=== PATIENT | female | born 1965 | race Caucasian/White ===

== ENCOUNTER → 2017-11-18 | Outpatient (CLI) | payer OTHER ==
[~2017-11-18] MED LIST: LEVO1TAB27 PO; SUMA100T32 PO
== END ==
LOC: LAB 10:18
PROVIDERS: ATTEND Internal Medicine Cardiovascular Disease
DX: R00.2 Palpitations (principal)
CPT/HCPCS: 36415; 84443

== ENCOUNTER → 2018-01-05 | Outpatient (CLI) | payer OTHER ==
[2018-01-05 11:34] LABS: INR 1.19
== END ==
LOC: LAB 10:47
PROVIDERS: ATTEND Internal Medicine
DX: I48.91 Unspecified atrial fibrillation (principal)
CPT/HCPCS: 36415; 81001; 82310; 82374; 82435; 82565; 82947; 84132; 84295; 84520; 85027; 85610

== ENCOUNTER 2018-01-26 18:04 | Emergency (ER) | payer OTHER ==
--- NOTE | 2018-01-26 18:11 | ER Report ---
History and Physical Time Seen By MD: 18:11 Hx. of Stated Complaint: pt started having chest pain, palpitations, sob, lightheadness, dizzy, nauseous last night. pt had an ablation january and is currently wearing a cariac monitor that has altered her for 15 events. HPI/ROS CHIEF COMPLAINT: Rapid heart rate HISTORY OF PRESENT ILLNESS: 52-year-old female patient presents to emergency room with complaint of a rapid heart rate. Patient states that she has a history of A. fib and had a cardiac ablation done on the first. Patient states she was doing well, she states she was taking medication as directed. She states approximately an hour and half prior to arrival in the emergency room patient felt that her heart rate started racing, she stated that she felt very lightheaded and dizzy. Patient denies having any vomiting or diarrhea. Patient did state that she was feeling nauseated. Patient states that she decided come to the emergency room because her heart was continued to race. Patient states that yesterday she felt her heart would flutter little bit her chest, she would have some coughing at that time and then would go away. She states that today he did not go away. REVIEW OF SYSTEMS: Respiratory: No cough, no dyspnea. Cardiovascular: As noted above Gastrointestinal: No vomiting, no abdominal pain. Musculoskeletal: No back pain. Allergies: Coded Allergies: celecoxib (Verified Allergy, Intermediate, RASH, 11/09/07) Uncoded Allergies: ACRONYCIN (Allergy, Intermediate, RASH, 11/09/07) Home Meds Reported Medications Sumatriptan Succinate (Imitrex) 100 Mg Tablet, 100 MG PO 10/18/12 Past Medical/Surgical History Patient has a past medical history of A. fib, arthritis. Patient has a surgical history of cardiac ablation, hysterectomy, left shoulder surgery, back surgery. Reviewed Nurses Notes: Yes Hx Smoking: No Hx Substance Use Disorder: No Hx Alcohol Use: No Constitutional Vital Sign - Last 24 Hours 01/26/18 01/26/18 01/26/18 01/26/18 18:06 18:07 18:30 18:34 Temp 96.8 Pulse 192 87 Resp 20 9 B/P (MAP) 109/50 (69) 109/50 104/78 (87) Pulse Ox 92 95 01/26/18 01/26/18 01/26/18 01/26/18 18:49 19:00 19:04 19:06 Pulse 91 84 103 Resp 11 9 19 B/P (MAP) 103/51 (68) Pulse Ox 97 96 96 Physical Exam General Appearance: The patient is alert, has no immediate need for airway protection and no current signs of toxicity. Respiratory: Chest is non tender, lungs are clear to auscultation. Cardiac: Patient has a rapid heart rate which is regular. Ventricular rate is in the 180s. Gastrointestinal: Abdomen is soft and non tender, no masses, bowel sounds normal. Musculoskeletal: Neck: Neck is supple and non tender. Extremities have full range of motion and are non tender. Skin: No rashes or lesions. DIFFERENTIAL DIAGNOSIS: After history and physical exam differential diagnosis was considered for atrial fibrillation with RVR. Medical Decision Making Data Points Result Diagram: 01/26/182 01/26/182 Laboratory Hematology Test 01/26/18 18:22 Red Blood Count 4.73 M/uL (4.17-5.56) Mean Corpuscular Volume 94.5 fL (80.0-96.0) Mean Corpuscular Hemoglobin 32.0 pg (26.0-33.0) Mean Corpuscular Hemoglobin Concent 33.9 g/dL (32.0-36.0) Red Cell Distribution Width 12.7 % (11.5-14.5) Mean Platelet Volume 8.7 fL (7.2-11.1) Neutrophils (%) (Auto) 53.9 % (39.4-72.5) Lymphocytes (%) (Auto) 36.7 % (17.6-49.6) Monocytes (%) (Auto) 6.8 % (4.1-12.4) Eosinophils (%) (Auto) 1.3 % (0.4-6.7) Basophils (%) (Auto) 1.3 % (0.3-1.4) Nucleated RBC Relative Count (auto) 0.0 /100WBC Neutrophils # (Auto) 5.7 K/uL (2.0-7.4) Lymphocytes # (Auto) 3.9 K/uL (1.3-3.6) Monocytes # (Auto) 0.7 K/uL (0.3-1.0) Eosinophils # (Auto) 0.1 K/uL (0.0-0.5) Basophils # (Auto) 0.1 K/uL (0.0-0.1) Nucleated RBC Absolute Count (auto) 0.01 K/uL Sodium Level 139 mmol/L (137-145) Potassium Level 3.8 mmol/L (3.5-5.0) Chloride Level 103 mmol/L (98-107) Carbon Dioxide Level 23 mmol/L (22-31) Blood Urea Nitrogen 11 mg/dl (7-18) Creatinine 0.80 mg/dl (0.52-1.04) Glomerular Filtration Rate Calc > 60.0 Random Glucose 101 mg/dl (75-110) Calcium Level 9.1 mg/dl (8.4-10.2) Total Bilirubin 0.3 mg/dl (0.2-1.3) Aspartate Amino Transf (AST/SGOT) 18 U/L (0-35) Alanine Aminotransferase (ALT/SGPT) 32 U/L (0-56) Alkaline Phosphatase 65 U/L (0-126) Troponin I < 0.012 ng/ml Total Protein 6.9 g/dl (6.3-8.2) Albumin 4.2 g/dl (3.5-5.0) Chemistry Test 01/26/18 18:22 White Blood Count 10.6 k/uL (4.5-11.0) Red Blood Count 4.73 M/uL (4.17-5.56) Hemoglobin 15.1 g/dL (12.0-16.0) Hematocrit 44.7 % (34.0-47.0) Mean Corpuscular Volume 94.5 fL (80.0-96.0) Mean Corpuscular Hemoglobin 32.0 pg (26.0-33.0) Mean Corpuscular Hemoglobin Concent 33.9 g/dL (32.0-36.0) Red Cell Distribution Width 12.7 % (11.5-14.5) Platelet Count 281 K/uL (150-450) Mean Platelet Volume 8.7 fL (7.2-11.1) Neutrophils (%) (Auto) 53.9 % (39.4-72.5) Lymphocytes (%) (Auto) 36.7 % (17.6-49.6) Monocytes (%) (Auto) 6.8 % (4.1-12.4) Eosinophils (%) (Auto) 1.3 % (0.4-6.7) Basophils (%) (Auto) 1.3 % (0.3-1.4) Nucleated RBC Relative Count (auto) 0.0 /100WBC Neutrophils # (Auto) 5.7 K/uL (2.0-7.4) Lymphocytes # (Auto) 3.9 K/uL (1.3-3.6) Monocytes # (Auto) 0.7 K/uL (0.3-1.0) Eosinophils # (Auto) 0.1 K/uL (0.0-0.5) Basophils # (Auto) 0.1 K/uL (0.0-0.1) Nucleated RBC Absolute Count (auto) 0.01 K/uL Glomerular Filtration Rate Calc > 60.0 Calcium Level 9.1 mg/dl (8.4-10.2) Total Bilirubin 0.3 mg/dl (0.2-1.3) Aspartate Amino Transf (AST/SGOT) 18 U/L (0-35) Alanine Aminotransferase (ALT/SGPT) 32 U/L (0-56) Alkaline Phosphatase 65 U/L (0-126) Troponin I < 0.012 ng/ml Total Protein 6.9 g/dl (6.3-8.2) Albumin 4.2 g/dl (3.5-5.0) EKG/Imaging EKG Interpretation 12 lead EKG done at 1812: Rhythm: Atrial fibrillation with rapid ventricular response, ventricular rate of 182 bpm. [place]: normal QRS: Normal ST segments: normal 12 lead EKG done at 1934: Rhythm: normal sinus rhythm [place]: normal QRS: normal ST segments: Nonspecific ST abnormality Imaging CHEST PA AND LAT Additional pertinent History: Chest pain tightness COMPARISON STUDIES: none FINDINGS: Support lines and catheters: None Lungs and Pleura: Lung mendoza well expanded with no infiltrates or consolidations. No parenchymal mass lesions are seen. There are no effusions Heart and vasculature: Negative. [place] and Mediastinum: Negative. Bones and Chest wall: Mild scoliotic curvature Upper Abdomen: Negative. IMPRESSION: 1. Negative chest for acute cardiopulmonary disease. Report Dictated By: Gualberto Cartwright MD at 01/26/2018 7:18 PM Report E-Signed By: Gualberto Cartwright MD at 01/26/2018 7:20 PM ED Course/Re-evaluation ED Course Patient was admitted in exam room, history and physical were obtained. Differential diagnoses were considered. On examination patient is tachycardic, her heart rate is irregular. An EKG was done which showed patient was in A. fib with RVR with a ventricular rate of 182 bpm. A CBC, CMP, troponin, and chest x- ray were done. Labs were unremarkable, chest x-ray was negative. Patient did receive 20 mg of diltiazem IV. That did slow her down considerably and that after 30 minutes she did convert to a normal sinus rhythm. I discussed the case with Dr. Leon, cardiology at [facility], who felt that there was no need to change her medications, stating that she just is to continue with her flecainide as well as her metoprolol. She is to follow-up with her software development project manager as directed. I discussed this with the patient who verbalized understanding and agreement. We 'll go ahead and discharge patient home at this time. Patient states she does feel significantly improved. Decision to Disposition Date: Jan 26, 2018 Decision to Disposition Time: 19:55 Depart Departure Latest Vital Signs Vital Signs Date Time Temp Pulse Resp B/P (MAP) Pulse Ox O2 Delivery O2 Flow Rate FiO2 01/26/18 19:06 103 19 96 01/26/18 19:00 103/51 (68) 01/26/18 18:07 96.8 Impression: Primary Impression: Atrial fibrillation with RVR Condition: Improved Disposition: HOME OR SELF-CARE Referrals: CHANCE KAPLAN (PCP) Patient Instructions: A-fib (Atrial Fibrillation) (ED) Additional Instructions: Follow up with Cardiology as directed. Continue with your current medications. Return to the ER if condition worsens. You are cleared for all activities. Increase fluid intake. SAMUEL MENDOZA Jan 26, 2018 18:11
[2018-01-26] MEDS ORDERED: NS(*) 0.9% 1000 ML BAG 1,000 ML IV ONE (18:17)
[2018-01-26] MEDS ORDERED: DILTIAZEM 5 MG/ML 5ML IVPUSH IVP ONE (18:20)
--- NOTE | 2018-01-26 18:23 | EKG ---
FACILITY: [facility] PATIENT NAME: DONNY WINTER : [id number] MR: [id number] V: [id number] EXAM DATE: ORDERING PHYSICIAN: SAMUEL MENDOZA TECHNOLOGIST: Test Reason : heart racing Blood Pressure : / mmHG Vent. Rate : 182 BPM Atrial Rate : 143 BPM P-R Int : 000 ms QRS Dur : 088 ms QT Int : 230 ms P-R-T Axes : 000 -24 190 degrees QTc Int : 400 ms Atrial fibrillation with rapid ventricular response RSR' or QR pattern in V1 suggests right ventricular conduction delay Diffuse ST-T findings Abnormal ECG No previous ECGs available Confirmed by LUCIA CONDE ([id number]) on 01/27/2018 6:20:19 AM Referred By: Confirmed By:LUCIA CONDE
[2018-01-26 18:31] LABS: PLATELET COUNT, AUTOMATED 281 K/uL (150-450)
--- NOTE | 2018-01-26 19:23 | RADIOLOGY IMAGING REPORT ---
FACILITY: [facility] PATIENT NAME: Karen Roa : 1965 MR: [id number] V: [id number] EXAM DATE: ORDERING PHYSICIAN: SAMUEL MENDOZA TECHNOLOGIST: Location: [facility] [place] Patient: Karen oRa : 1965 Visit/Account:[id number] Date of Sevice: 01/26/2018 CHEST PA AND LAT Additional pertinent History: Chest pain tightness COMPARISON STUDIES: none FINDINGS: Support lines and catheters: None Lungs and Pleura: Lung mendoza well expanded with no infiltrates or consolidations. No parenchymal ma ss lesions are seen. There are no effusions Heart and vasculature: Negative. [place] and Mediastinum: Negative. Bones and Chest wall: Mild scoliotic curvature Upper Abdomen: Negative. IMPRESSION: 1. Negative chest for acute cardiopulmonary disease. Report Dictated By: Gualberto Cartwright MD at 01/26/2018 7:18 PM Report E-Signed By: Gualberto Cartwright MD at 01/26/2018 7:20 PM WSN:[id number]
--- NOTE | 2018-01-26 19:41 | EKG ---
FACILITY: [facility] PATIENT NAME: DONNY WINTER : [id number] MR: [id number] V: [id number] EXAM DATE: ORDERING PHYSICIAN: SAMUEL MENDOZA TECHNOLOGIST: KARIME Test Reason : CONVERSION Blood Pressure : / mmHG Vent. Rate : 074 BPM Atrial Rate : 074 BPM P-R Int : 136 ms QRS Dur : 104 ms QT Int : 412 ms P-R-T Axes : 047 -15 -09 degrees QTc Int : 457 ms Sinus rhythm Left axis Incomplete right bundle branch block Nonspecific ST and T wave abnormality Abnormal ECG Confirmed by LUCIA CONDE ([id number]) on 01/27/2018 6:20:57 AM Referred By: Confirmed By:LUCIA CONDE
[2018-01-26 20:00] VITALS: BP 97/68
== END 2018-01-26 20:10 | disposition home or self-care (01) ==
LOC: ER 18:32
DX: I48.91 Unspecified atrial fibrillation (principal)
CPT/HCPCS: 71046; 82040; 82247; 82310; 82374; 82435; 82565; 82947; 84075; 84132; 84155; 84295; 84450; 84460; 84484; 84520; 85025; 93005; 96361; 96374; 99284; J3490; J7030